=== PATIENT | female | born 1980 | race Caucasian/White ===

== ENCOUNTER 2016-09-28 11:13 | Emergency (ER) | payer OTHER ==
[2016-09-28 11:18] VITALS: BP 139/92; PULSE 87; TEMP 97.6; BMI 29.2
--- NOTE | 2016-09-28 11:57 | PDOC ---
"History of Present Illness - General Chief Complaint: Injury Stated Complaint: LT LEG PAIN History Source: Patient Exam Limitations: No Limitations - History of Present Illness Initial Comments: 09/28/16 14:25 Chief complaint: Left hip and pelvic pain for one week after a fall History of present illness: Patient is a 36-year-old female with a history of BERRY, panic attacks, seasonal asthma, MVP, Niddm here today complaining of severe left hip and anterior pelvic pain times one week after falling backwards onto her buttocks on ceramic tile in her home. Patient reports the pain radiates down her left leg anteriorly and posteriorly. Patient denies any back pain. Patient reports that left eye has a tingling sensation. Patient reports that it she is unable to rotate her left leg inward and outward. Pt. also has decreased range of motion of left hip laterally. Pt. denies any head injury. Patient did not seek any medical care. Patient took ibuprofen arts that this did not help. Patient reports that pain is currently an 8 to a 9 out of 10 with movement. 09/28/16 14:43 Occurred: reports: last week Severity: reports: severe (left hip/pelvic) Pain Location: reports: lower extremity (left hip), pelvis (left hip/pelvic ) Method of Injury: Yes: fall Modifying Factors: improves with: None Loss of Consciousness: no loss of consciousness Past History - Past Medical History Allergies/Adverse Reactions: Allergies Allergy/AdvReac Type Severity Reaction Status Date / Time No Known Allergies Allergy Verified 09/28/16 11:15 Home Medications: Ambulatory Orders Naproxen [Naprosyn -] 500 mg PO BID PRN #14 tablet 09/28/16 Oxycodone HCl/Acetaminophen [Percocet 5-325 mg Tablet] 1 tab PO Q8H PRN #5 tablet MDD 3 09/28/16 Anemia: No Asthma: Yes (SEASONAL (WINTER)) Cancer: No Cardiac Disorders: Yes (MVP) CVA: No COPD: No CHF: No Dementia: No Diabetes: Yes (BORDERLINE) GI Disorders: No Disorders: No HTN: No Hypercholesterolemia: No Liver Disease: No Psychiatric Problems: Yes (BERRY, panic attacks ) Suicide Attempt (Hx): No Seizures: No Thyroid Disease: No - Surgical History Orthopedic Surgery: Yes (TOE SX FOR FRACTURE) - Immunization History Immunization Up to Date: No - Psycho/Social/Smoking Cessation Hx Anxiety: No Suicidal Ideation: No Smoking Status: Yes Smoking History: Current every day smoker Have you smoked in the past 12 months: Yes Number of Cigarettes Smoked Daily: 10 Information on smoking cessation initiated: Yes 'Breaking Loose' booklet given: 09/28/16 Hx Alcohol Use: No Drug/Substance Use Hx: No Substance Use Type: None Hx Substance Use Treatment: No Review of Systems - Review of Systems Able to Perform ROS?: Yes Constitutional: No: Symptoms Reported HEENTM: No: Symptoms Reported Respiratory: No: Symptoms reported Cardiac (ROS): No: Symptoms Reported ABD/GI: No: Symptoms Reported : No: Symptoms Reported Musculoskeletal: Yes: Joint Pain (left hip/anterior pelvis) Integumentary: No: Symptoms Reported Neurological: No: Symptoms reported *Physical Exam - Vital Signs Last Vital Signs Temp Pulse Resp BP Pulse Ox 97.6 F 87 18 139/92 100 09/28/16 11:16 09/28/16 11:16 09/28/16 11:16 09/28/16 11:16 09/28/16 11:16 - Physical Exam General Appearance: Yes: Appropriately Dressed Respiratory/Chest: positive: Lungs Clear, Normal Breath Sounds Cardiovascular: positive: Regular Rhythm, Regular Rate, S1, S2 Vascular Pulses: Doralis-Pedis (L): 4+ Musculoskeletal: positive: Normal Inspection. negative: CVA Tenderness, CVA Tenderness (R), CVA Tenderness (L), Vertebral Tenderness Extremity: positive: Tender (left hip/anterior pelvis). negative: Normal Range of Motion (left hip laterally and internal/external rotation), Swelling Integumentary: positive: Normal Color Neurologic: positive: Alert, Normal Response, Motor Strength 5/5 (motor 3/4 left leg), Respond to painful stimul (left thigh), Responsive Medical Decision Making - Medical Decision Making 09/28/16 14:40 Patient is a 36-year-old female with a history of anxiety here today complaining of severe left hip and anterior pelvic pain times one week after falling backwards onto her buttocks on ceramic tile in her home. Patient reports the pain radiates down her left leg anteriorly and posteriorly. Patient denies any back pain. Patient reports that left eye has a tingling sensation. Patient reports that it she is unable to rotate her left leg inward and outward. Pt. also has decreased range of motion of left hip laterally. Pt. denies any head injury. Fall one week ago, left hip/anterior pelvic pain radiates to anterior/posterior thigh left groin strain left hip pain PLAN: xray left hip/pelvic no fracture noted CT without contrast hip/pelvis left no fracture noted follow up with ortho percocet 5mg/325mg po now every 8 hrs prn severe pain # 5 pt. warned not to take klonopin or lunesta when taking percocet as this can lead to respiratory distress. 09/28/16 14:46 09/28/16 15:03 09/28/16 15:16 Data Detail Level: Printer-Friendly View | Show Extended View Confidential Drug Utilization Report Search Terms: Bonnie Winters, 1980 Search Date: 09/28/2016 03:14:25 PM This report was requested by: Kristen Mast | Reference #: [id number] Others' Prescriptions Patient Name: Bonnie Winters Date: 1980 Address: [address] [place] [address] Sex: Female Rx Written Rx Dispensed Drug Quantity Days Supply Prescriber Name 08/18/2016 09/21/2016 clonazepam 1 mg tablet 90 30 Shalhoub, Urania RPA-C 08/18/2016 09/21/2016 lunesta 3 mg tablet 30 30 Shalhoub, Kandi RPA-C 09/28/16 17:56 09/28/16 17:56 *DC/Admit/Observation/Transfer Diagnosis at time of Disposition: Hip pain, left Fall Qualifiers: Encounter type: initial encounter Qualified Code(s): W19.XXXA - Unspecified fall, initial encounter Strain of groin Qualifiers: Encounter type: initial encounter Laterality: left Qualified Code(s): S76.212A - Strain of adductor muscle, fascia and tendon of left thigh, initial encounter - Discharge Dispostion Disposition: HOME Condition at time of disposition: Stable - Prescriptions Prescriptions: Naproxen [Naprosyn -] 500 mg PO BID PRN #14 tablet PRN Reason: Pain Oxycodone HCl/Acetaminophen [Percocet 5-325 mg Tablet] 1 tab PO Q8H PRN #5 tablet MDD 3 PRN Reason: Severe Pain - Referrals Referrals: David Thorpe [Primary Care Provider] - Jonas Miramontes MD [Staff Physician] - - Patient Instructions Additional Instructions: Follow-up with orthopedist as soon as possible for further evaluation Avoid any strenuous activities Return to emergency room if symptoms worsen DO NOT TAKE KLONOPIN OR LUNESTA SAME DAY TAKING PERCOCET Patient voiced understanding of discharge instructions all questions were answered"
[2016-09-28] MEDS ORDERED: OXYCODONE/APAP 5/325MG COMBO TABLET PO ONE (13:41)
[2016-09-28] MEDS ORDERED: OXYCODONE/APAP 5/325MG COMBO TABLET ONE (13:48)
== END 2016-09-28 15:28 | disposition home or self-care (01) ==
LOC: JERFT 11:13
DX: S76.212A Strain of adductor muscle, fascia and tendon of left thigh, initial encounter (principal); S39.011A Strain of muscle, fascia and tendon of abdomen, initial encounter; W18.39XA Other fall on same level, initial encounter; Z91.81 History of falling; Y93.89 Activity, other specified; Y92.038 Other place in apartment as the place of occurrence of the external cause; E11.9 Type 2 diabetes mellitus without complications; F41.1 Generalized anxiety disorder; F41.0 Panic disorder [episodic paroxysmal anxiety]; J45.998 Other asthma
CPT/HCPCS: 72192-TC; 73523-TC; 84703; 99281-25

== ENCOUNTER 2018-02-06 00:23 | Emergency (ER) | payer OTHER ==
[2018-02-06 00:34] VITALS: BP 124/85; PULSE 103; TEMP 97.4; BMI 26.6
[2018-02-06] MEDS ORDERED: SODIUM CHLORIDE 0.9% 500 ML INFUS.BAG IV ONE (00:48)
--- NOTE | 2018-02-06 00:49 | PDOC ---
History of Present Illness - General Chief Complaint: Alcohol intoxication Stated Complaint: INTOX Time Seen by Provider: 02/06/18 00:28 - History of Present Illness Initial Comments: 02/06/18 00:52 37 year old female with a PMH of Asthma, COPD (not on home O2) and MVP was BIBEMS after family found her down earlier this evening. Patient notes she took her usual medications (Pristiq (100 mg), Klonopin (2 mg), Lunesta (2 mg)) in addition to three beers. Denies any active homicidial or suicidal ideations. Keeps repeating "I have anxiety." Patient's cousin and @ bedside note they were with patient earlier in the day and she was awake, alert and at baseline. They returned to the house and found patient down. called 911 and laid patient on her side. State patient woke up spontaneously after EMS arrived. NKDA Surgical: C/S x2 Social: 1/2 ppd, daily alcohol, daily recreational drugs Past History - Past Medical History Allergies/Adverse Reactions: Allergies Allergy/AdvReac Type Severity Reaction Status Date / Time No Known Allergies Allergy Verified 02/06/18 00:32 Home Medications: Ambulatory Orders Naproxen [Naprosyn -] 500 mg PO BID PRN #14 tablet 09/28/16 Oxycodone HCl/Acetaminophen [Percocet 5-325 mg Tablet] 1 tab PO Q8H PRN #5 tablet MDD 3 09/28/16 Anemia: No Asthma: Yes (SEASONAL (WINTER)) Cancer: No Cardiac Disorders: Yes (MVP) CVA: No COPD: No CHF: No Dementia: No Diabetes: Yes (BORDERLINE) GI Disorders: No Disorders: No HTN: No Hypercholesterolemia: No Liver Disease: No Psychiatric Problems: Yes (BERRY, panic attacks ) Seizures: No Thyroid Disease: No - Surgical History Orthopedic Surgery: Yes (TOE SX FOR FRACTURE) - Immunization History Immunization Up to Date: No - Suicide/Smoking/Psychosocial Hx Smoking Status: Yes Smoking History: Unknown if ever smoked Have you smoked in the past 12 months: No Number of Cigarettes Smoked Daily: 10 Information on smoking cessation initiated: No 'Breaking Loose' booklet given: 09/28/16 Hx Alcohol Use: No Drug/Substance Use Hx: No Substance Use Type: None Hx Substance Use Treatment: No Review of Systems - Review of Systems Constitutional: No: Chills, Fever HEENTM: No: Blurred Vision, Double Vision Respiratory: No: Orthopnea, Shortness of Breath, Stridor, Wheezing Cardiac (ROS): No: Chest Pain, Edema, Irregular Heart Rate, Lightheadedness, Palpitations, Syncope ABD/GI: No: Constipated, Diarrhea, Nausea, Vomiting Psychiatric: Yes: Anxiety, Depression *Physical Exam - Vital Signs Last Vital Signs Temp Pulse Resp BP Pulse Ox 97.4 F L 103 H 16 124/85 92 L 02/06/18 00:33 02/06/18 00:33 02/06/18 00:33 02/06/18 00:33 02/06/18 00:33 - Physical Exam Comments: 02/06/18 00:56 General: alert, tearful, tachycardic, drowsy but arousable HEENT: atraumatic, PEERLA, EOMI CV: S1/S2, tachycardic Respiratory: CLTA, no wheeze/crackles ED Treatment Course - LABORATORY CBC & Chemistry Diagram: 02/06/18 02:10 02/06/18 01:36 Medical Decision Making - Medical Decision Making 02/06/18 00:56 37 year old female presents with suspected overdose. Alert, tachycardic, intermittently hypoxic to 90's when speaking. Denies suicidal ideation. Will test for ASA, acetaminophen in addition to Urine Tox. IV Fluid. Reassess. ECG shows NSR HR 96, no NADIA/STD/TWI, normal axis, normal intervals - non- ischemic ECG. 02/06/18 01:54 Patient provides additional history of heroin ingestion prior to admission. VS: 132/88, HR 88, SpO2 100% on 2L NC. Labs pending. 02/06/18 02:38 Patient SpO2 100% on RA. Ambulatory. CBC shows leukocytosis 12.8 - likely reactive. CMP unremarkable. Alcohol 33. ASA and Acetaminophen (-). CXR pending. 02/06/18 03:55 CXR shows no infiltrate/consolidation in dependent lobes suggestive of aspiration. Will discharge patient home with return precautions and referrals to NA and AA. Patient and patient's at bedside counseled extensively on substance abuse resources and counseling. At time of discharge patient improved, ambulatory, tolerating PO intake. I discussed the physical exam findings, ancillary test results and final diagnoses with the patient. I answered all of the patient's questions. The patient was satisfied with the care received and felt comfortable with the discharge plan and treatment plan. The patient will return to the Emergency Department with any new, persistent or worsening symptoms. *DC/Admit/Observation/Transfer Diagnosis at time of Disposition: Alcohol intoxication - Discharge Dispostion Disposition: HOME Condition at time of disposition: Good Decision to Admit order: No - Referrals - Patient Instructions Printed Discharge Instructions: DI for Alcohol Abuse Additional Instructions: Please follow up with your primary care provider in the next 2-3 days. Return to the Emergency Department for any new/worsening/concerning symptoms. - Post Discharge Activity
--- NOTE | 2018-02-06 01:17 | PDOC ---
Attending Attestation - Resident Resident Name: JuniNury - ED Attending Attestation I have performed the following: I have examined & evaluated the patient, The case was reviewed & discussed with the resident, I agree w/resident's findings & plan - HPI HPI: 02/06/18 01:11 37y/o F HTN, depression presents with friend brought in by EMS for intoxication. Friend was with the patient, states she had a few beers, concerned she may have also taken extra doses of her benzodiazepine. Also on antidepressants. Pt feels anxious but denies SI/HI/AH/VH. 02/06/18 02:22 later also admitted to [facility]. calm now, still somnolent. HD stable, O2 improved and sats well on room air. labs/cxr pending. Continue to monitor, reassess, and dispo accordingly. Signed out to overnight team. - Physicial Exam PE: 02/06/18 01:17 Afebrile, slight tachycardia Drowsy but intermittently arousable and anxious, O2 sat is within normal limits when breathing normally, occasionally hyperventilates. Atraumatic Lungs are clear, heart is regular slight tachycardia Neurologically nonfocal Pupils are equal and reactive - Medical Decision Making 02/06/18 01:18 37-year-old female with intoxication, combination of alcohol, benzodiazepine, but no evidence of antidepressant overdose as she took her usual dose. No evidence of intentional attempt to harm herself, she is hemodynamically stable here. EKG is normal with normal intervals We'll check labs and monitor Reassess and disposition accordingly Heart Score/ECG Review #1 General ECG Interpretation: Sinus Rhythm, Normal Rate, Normal Intervals, No acute ischemic changes
[2018-02-06 02:17] LABS: SALICYLATE <4.0 mg/dL
[2018-02-06 02:18] LABS: ACETAMINOPHEN <2.0 ug/mL
[2018-02-06 02:35] LABS: ANION GAP 11 (8-16); BILIRUBIN,TOTAL 0.2 mg/dL (0.2-1.0); BLOOD UREA NITROGEN 9 mg/dL (7-18); CALCIUM 8.8 mg/dL (8.5-10.1); CHLORIDE 105 mmol/L (98-107); CO2 26 mmol/L (21-32); CREATININE 0.8 mg/dL (0.55-1.02); GLUCOSE,RANDOM 78 mg/dL (74-106); SGOT/AST 21 U/L (15-37); SGPT/ALT 23 U/L (12-78); SODIUM 142 mmol/L (136-145)
[2018-02-06 02:35] LABS: BASO % 0.7 % (0-2.0); EOS % 0.8 % (0-4.5); HEMATOCRIT 39.5 % (32.4-45.2); HEMOGLOBIN 12.7 GM/dL (10.7-15.3); LYMPH % 16.4 % (8-40); MCH 27.8 pg (25.7-33.7); MCHC 32.2 g/dl (32.0-36.0); MEAN CELL VOLUME 86.5 fl (80-96); MEAN PLT VOLUME 10.3 fl (7.5-11.1); MONO % 7.2 % (3.8-10.2); NEUT % 74.9 % (42.8-82.8); PLATELET COUNT 209 K/MM3 (134-434); RBC 4.57 M/mm3 (3.60-5.2); RDW 13.6 % (11.6-15.6); WHITE BLOOD COUNT 12.8 K/mm3 (4.0-10.0)
[2018-02-06 02:36] LABS: ALK PHOS 124 U/L (45-117)
--- NOTE | 2018-02-06 14:16 | EKG ---
Test Reason : Blood Pressure : / mmHG Vent. Rate : 096 BPM Atrial Rate : 096 BPM P-R Int : 144 ms QRS Dur : 086 ms QT Int : 366 ms P-R-T Axes : 052 046 041 degrees QTc Int : 462 ms NORMAL SINUS RHYTHM NORMAL ECG NO PREVIOUS ECGS AVAILABLE Confirmed by Placdio Boykin ([id number]) on 02/06/2018 2:15:29 PM Referred By: Confirmed By:Placido Boykin
== END 2018-02-06 04:09 | disposition home or self-care (01) ==
LOC: JER 00:23
PROC: 3E0337Z Introduction of Electrolytic and Water Balance Substance into Peripheral Vein, Percutaneous Approach (ICD-10-PCS; principal; 2018-02-06)
DX: F10.929 Alcohol use, unspecified with intoxication, unspecified (principal); Y90.1 Blood alcohol level of 20-39 mg/100 ml; J45.909 Unspecified asthma, uncomplicated; J44.9 Chronic obstructive pulmonary disease, unspecified; I34.1 Nonrheumatic mitral (valve) prolapse; F41.1 Generalized anxiety disorder; F41.0 Panic disorder [episodic paroxysmal anxiety]; E11.9 Type 2 diabetes mellitus without complications
CPT/HCPCS: 36415; 71045-TC-FY; 80053; 80307; 84703; 85025; 93005; 93010; 96374; 99282-25

== ENCOUNTER 2021-09-07 01:17 | Inpatient (IN) | payer OTHER ==
[2021-09-07 01:30] VITALS: BMI 24.1
[2021-09-07 02:15] LABS: VENOUS PCO2 63.4 mmHg (38-52); VENOUS PH 7.28 (7.310-7.410)
[2021-09-07 02:18] LABS: BASO % 0.6 % (0-2.0); EOS % 2.4 % (0-4.5); HEMATOCRIT 35.7 % (32.4-45.2); HEMOGLOBIN 11.9 GM/dL (10.7-15.3); LYMPH % 31.4 % (8-40); MCH 27.8 pg (25.7-33.7); MCHC 33.2 g/dl (32.0-36.0); MEAN CELL VOLUME 83.6 fl (80-96); MEAN PLT VOLUME 10.1 fl (7.5-11.1); MONO % 6.2 % (3.8-10.2); NEUT % 59.4 % (42.8-82.8); PLATELET COUNT 227 10^3/uL (134-434); RBC 4.28 M/mm3 (3.60-5.2); RDW 13.6 % (11.6-15.6); WHITE BLOOD COUNT 8.9 K/mm3 (4.0-10.0)
[2021-09-07 02:33] LABS: CHLORIDE 106 mmol/L (98-107); INR 1.05 (0.83-1.09); PROTHROMBIN TIME (PATIENT) 12.1 SEC (9.7-13.0); SODIUM 138 mmol/L (136-145)
[2021-09-07 02:35] LABS: ACTIVATED PTT 28.6 SECONDS (25.2-36.5); CALCIUM 8.8 mg/dL (8.5-10.1)
[2021-09-07 02:36] LABS: ALBUMIN 3.6 g/dl (3.4-5.0); ANION GAP 3 MMOL/L (8-16); BLOOD UREA NITROGEN 10.5 mg/dL (7-18); CO2 30 mmol/L (21-32); GLUCOSE,RANDOM 83 mg/dL (74-106); MAGNESIUM 1.9 mg/dL (1.8-2.4)
[2021-09-07 02:39] LABS: CREATININE 0.7 mg/dL (0.55-1.3); SGOT/AST 17 U/L (15-37); SGPT/ALT 19 U/L (13-61)
[2021-09-07 02:41] LABS: BILIRUBIN,TOTAL 0.3 mg/dL (0.2-1); TOT PROT 6.6 g/dl (6.4-8.2)
[2021-09-07 02:42] LABS: ALK PHOS 107 U/L (45-117)
[2021-09-07] MEDS ORDERED: DEXTROSE 50%-WATER - 25 GM/50 ML VIAL IVPUSH ONE (07:43)
[2021-09-07] MEDS ORDERED: DEXTROSE 5%-NORMAL SALINE 1,000 ML IV SCH (08:15)
[2021-09-07] MEDS ORDERED: HALOPERIDOL LACTATE 5 MG/ML IM ONE (09:07)
[2021-09-07] MEDS ORDERED: HALOPERIDOL LACTATE 5 MG/ML ONE (09:10)
[2021-09-07 23:16] LABS: PH,URINE 5.5 (5.0-8.0); URINE APPEARANCE CLEAR; URINE BILIRUBIN NEGATIVE (NEGATIVE); URINE COLOR YELLOW; URINE GLUCOSE (UA) NEGATIVE (NEGATIVE); URINE KETONE NEGATIVE (NEGATIVE); URINE LEUK ESTERASE NEGATIVE (NEGATIVE); URINE NITRITE NEGATIVE (NEGATIVE); URINE PROTEIN NEGATIVE (NEGATIVE); URINE UROBILINOGEN 0.2 mg/dL (0.2-1.0)
[2021-09-07 23:19] LABS: COCAINE, UR NEGATIVE (NEGATIVE); METHADONE, UR NEGATIVE (NEGATIVE); PHENCYCLIDINE,URINE NEGATIVE (NEGATIVE); URINE BARBITURATES NEGATIVE (NEGATIVE)
[2021-09-07 23:38] LABS: OPIATES, URI NEGATIVE (NEGATIVE); URINE AMPHETAMINES NEGATIVE (NEGATIVE); URINE BENZODIAZEPINES POSITIVE (NEGATIVE)
[2021-09-08 08:04] VITALS: BP 99/67; PULSE 62; TEMP 98
[2021-09-08 09:00] LABS: BASO % 0.4 % (0-2.0); EOS % 2.1 % (0-4.5); HEMATOCRIT 34.3 % (32.4-45.2); HEMOGLOBIN 10.8 GM/dL (10.7-15.3); LYMPH % 29.1 % (8-40); MCH 26.8 pg (25.7-33.7); MCHC 31.4 g/dl (32.0-36.0); MEAN CELL VOLUME 85.4 fl (80-96); MEAN PLT VOLUME 10.2 fl (7.5-11.1); MONO % 7.2 % (3.8-10.2); NEUT % 61.2 % (42.8-82.8); PLATELET COUNT 205 10^3/uL (134-434); RBC 4.01 M/mm3 (3.60-5.2); RDW 13.5 % (11.6-15.6); WHITE BLOOD COUNT 7.5 K/mm3 (4.0-10.0)
[2021-09-08 09:13] LABS: CALCIUM 8.7 mg/dL (8.5-10.1)
[2021-09-08 09:14] LABS: BLOOD UREA NITROGEN 11.2 mg/dL (7-18); MAGNESIUM 1.9 mg/dL (1.8-2.4)
[2021-09-08 09:17] LABS: CREATININE 0.6 mg/dL (0.55-1.3); PHOSPHOROUS 3.2 mg/dL (2.5-4.9)
== END 2021-09-08 13:46 | disposition home or self-care (01) | DRG 918 ==
LOC: JER 01:17 → JERBED 04:22
PROVIDERS: ADMIT Internal Medicine
DX: T42.4X2A Poisoning by benzodiazepines, intentional self-harm, initial encounter (principal); T74.91XA Unspecified adult maltreatment, confirmed, initial encounter; Y92.89 Other specified places as the place of occurrence of the external cause; E16.2 Hypoglycemia, unspecified; I34.1 Nonrheumatic mitral (valve) prolapse; F43.10 Post-traumatic stress disorder, unspecified
CPT/HCPCS: 36415; 70450-TC; 71045-TC-FY; 80048; 80053; 80307; 81003; 82803; 82962; 83036; 83735; 84100; 84443; 84484; 84702; 84703; 85025; 85610; 85730; 87086; 93005; 93010; 99285-25; C9803; G0480; U0003; U0005